=== PATIENT | female | born 1990 | race Two or more races ===

== ENCOUNTER 2021-11-06 18:31 | Emergency (ER) | payer SELFPAY ==
[~2021-11-06] VITALS: Ht 165.1 cm; Wt 69.0 kg
[2021-11-06] MEDS ORDERED: SODIUM CHLORIDE 0.9% 1,000 ML IV ONE (19:30)
[2021-11-06] MEDS ORDERED: MIDAZOLAM HCL 2 MG/2 ML VIAL IV ONE (19:30)
[2021-11-06] MEDS ORDERED: DIPHENHYDRAMINE 50MG/ML VIAL IM STA (21:29)
[2021-11-06] MEDS ORDERED: OLANZAPINE 10 MG/VIAL IM ONE (21:30)
[2021-11-06] MEDS ORDERED: MIDAZOLAM HCL 2 MG/2 ML VIAL IM ONE (21:30)
[2021-11-06 21:37] LABS: BASOPHILS % 0.7 % (0.0-2.0); EOSINOPHILS % 3.9 % (0.0-5.0); HEMATOCRIT. 35.7 % (36.0-48.0); HEMOGLOBIN. 12.1 g/dL (12.0-16.0); LYMPHOCYTES % 23.3 % (20.0-50.0); MEAN CORPUSCULAR HEMOGLOBIN 34.6 pg (28.0-32.0); MEAN CORPUSCULAR VOLUME 101.8 fL (81.0-99.0); MEAN PLATELET VOLUME 8.4 fl (7.4-10.4); MONOCYTES % 11.1 % (2.0-8.0); PLATELET 186 x1000/uL (130-400); RED CELL DISTRIBUTION WIDTH 12.8 % (11.6-14.6)
[2021-11-06 21:43] LABS: HCG SCREEN NEGATIVE
[2021-11-06 21:44] LABS: CHLORIDE 107 mEq/L (98-107)
[2021-11-06 21:51] LABS: ETHANOL BLOOD < 10 mg/dL
[2021-11-06 23:39] LABS: CLARITY URINE CLEAR (CLEAR); COLOR URINE YELLOW (YELLOW); KETONES URINE TRACE (NEGATIVE); LEUKOCYTE ESTERASE URINE 2+ (NEGATIVE); NITRITE URINE NEGATIVE (NEGATIVE); OCCULT BLOOD URINE NEGATIVE (NEGATIVE); PROTEIN URINE NEGATIVE (NEGATIVE); SPECIFIC GRAVITY URINE 1.027 (1.005-1.030)
[2021-11-06 23:55] LABS: *BARBITURATES SCREEN URINE NEGATIVE (NEGATIVE); METHADONE URINE SCREEN NEGATIVE (NEGATIVE); OPIATES URINE SCREEN NEGATIVE (NEGATIVE); PHENCYCLIDINE URINE SCREEN NEGATIVE (NEGATIVE)
[2021-11-06 23:59] LABS: *AMPHETAMINES SCREEN URINE PRESUMTIVE POSITIVE (NEGATIVE); *BENZODIAZEPINES SCREEN URINE PRESUMTIVE POSITIVE (NEGATIVE); *COCAINE SCREEN URINE PRESUMTIVE POSITIVE (NEGATIVE); CANNABINOID URINE SCREEN PRESUMTIVE POSITIVE (NEGATIVE)
[2021-11-07 10:10] VITALS: BP 112/68
== END 2021-11-07 10:35 | disposition home or self-care (01) ==
LOC: ER 18:31
DX: F19.10 Other psychoactive substance abuse, uncomplicated (principal); F29 Unspecified psychosis not due to a substance or known physiological condition; Z20.822 Contact with and (suspected) exposure to COVID-19
CPT/HCPCS: 36415; 80053; 80305; 80307; 80320; 80329; 81003; 81025; 84703; 85025; 96372; 99284; C9803; J1200; J2250; J3490; J7030; U0003; U0005; G0480

== ENCOUNTER 2021-11-12 22:55 | Emergency (ER) | payer SELFPAY ==
[~2021-11-12] VITALS: Ht 165.1 cm; Wt 57.0 kg
[2021-11-13] MEDS ORDERED: ACETAMINOPHEN 325MG TABLET PO STA (00:42)
[2021-11-13] MEDS ORDERED: BACITRACIN ZINC OINT UDPKT TOP ONE (00:45)
[2021-11-13] MEDS ORDERED: DOXY-326 PO (01:12)
[2021-11-13] MEDS ORDERED: ACET-2708 PO (01:12)
[2021-11-13] MEDS ORDERED: BO1 TP (01:12)
[2021-11-13 01:24] VITALS: BP 116/76
== END 2021-11-13 01:27 | disposition home or self-care (01) ==
LOC: ER 22:55
DX: S00.81XA Abrasion of other part of head, initial encounter (principal); L03.211 Cellulitis of face; J45.909 Unspecified asthma, uncomplicated; Y04.0XXA Assault by unarmed brawl or fight, initial encounter; Y93.89 Activity, other specified; Y92.488 Other paved roadways as the place of occurrence of the external cause
CPT/HCPCS: 99283